=== PATIENT | male | born 1975 | race Caucasian/White ===

== ENCOUNTER 2019-01-11 05:32 | Day surgery (SDC) | payer BC ==
--- NOTE | 2018-12-29 13:06 | HP ---
HISTORY AND PHYSICAL: DATE OF ADMISSION/SURGERY: 01/11/19 DATE OF OFFICE VISIT: 12/27/18 SURGEON: Sonja Viramontes MD * (DICTATED BY DEMETRIO ZHAO) PROCEDURE: Left carpal tunnel release. CHIEF COMPLAINT: Left wrist pain. HISTORY OF PRESENT ILLNESS: Mr. Coats is a 43-year-old gentleman with complaints of left wrist pain and numbness and tingling over the medial nerve distribution. He has elected to proceed with the left carpal tunnel release. PAST MEDICAL HISTORY: High cholesterol, history of seizures, depression, and anxiety. PAST SURGICAL HISTORY: None. CURRENT MEDICATIONS: Atorvastatin calcium 40 mg a day. ALLERGIES: No known drug allergies. FAMILY HISTORY: Coronary artery disease, stroke, diabetes, cancer, and epilepsy. SOCIAL HISTORY: He is a 43-year-old, he lives with his girlfriend. He does not smoke or use drugs. Uses occasional alcohol. REVIEW OF SYSTEMS: A complete 14-point review of systems was reviewed with the patient. It was positive for history of seizures. He denies a history of DVT, PE, hepatitis, HIV, or anesthesia problems. PHYSICAL EXAMINATION GENERAL: He is well developed, well nourished, in no acute distress. VITAL SIGNS: He stands 5 feet 6 inches tall, weighs 172 pounds. Blood pressure is 124/68, heart rate is 68. HEENT: Normocephalic, atraumatic. NECK: Supple. No palpable lymph nodes. PULMONARY: The lungs are clear to auscultation bilaterally. CARDIO: Regular rate and rhythm. Strong S1, S2. ABDOMEN: Soft, nontender, nondistended. NEUROLOGICAL: He is alert and oriented x3. MUSCULOSKELETAL: Left upper extremity: The skin is intact. There are no open wounds or abrasions. He has a positive Tinel's at the left wrist. He has diminished sensation over the medial nerve distribution of the left hand. He has a 2+ distal pulse. There is some mild thenar atrophy. ASSESSMENT AND PLAN: Mr. Coats is a 43-year-old gentleman with carpal tunnel syndrome of the left wrist. He has elected to proceed with an open left carpal tunnel release. The surgery is scheduled for 01/11/[address] Viramontes discussed the risks and benefits of the surgery at today's visit and all of his questions were answered. He will follow up with Dr. Viramontes in 7 to 10 days after the surgery. DEMETRIO ZHAO [id number]/[facility] #: [id number] MTDCholo
[~2019-01-11 05:32] MED LIST: Buffered Lidocaine 1% SYRIN* 1 ML/SYRINGE INTRADERM ONE
[2019-01-11] MEDS ORDERED: Famotidine IV* 10 MG/ML 2 ML (20 mg) ONE (05:54)
[2019-01-11] MEDS ORDERED: Buffered Lidocaine 1% SYRIN* 1 ML/SYRINGE INTRADERM ONE (05:54)
[2019-01-11] MEDS ORDERED: ceFAZolin 2 GM in NS PREMIX(*) 2 GM/100 ML BAG IVPB ONE (05:54)
[2019-01-11] MEDS ORDERED: Lactated Ringers 1000 ML Bag* 1,000 ML IV SCH (06:00)
[2019-01-11] MEDS ORDERED: Famotidine IV* 10 MG/ML 2 ML (20 mg) IV ONE (06:00)
[2019-01-11] MEDS ORDERED: Lidocaine 1% INJ* 10 MG/ML 30 ML SDV ONE (06:52)
[2019-01-11] MEDS ORDERED: Bupivacaine 0.5%* 50 ML VIAL ONE (06:52)
[2019-01-11] MEDS ORDERED: Lidocaine 2% PF * 5 ML VIAL ONE (06:56)
[2019-01-11] MEDS ORDERED: Propofol* 10 MG/ML 20 ML BTL ONE (06:56)
[2019-01-11] MEDS ORDERED: Dexamethasone IV* 4 MG/ML 1 ML (4 MG) ONE (06:56)
[2019-01-11] MEDS ORDERED: Ondansetron INJ* 2 MG/ML VIAL ONE (06:56)
[2019-01-11] MEDS ORDERED: fentaNYL* 50 MCG/ML 2 ML VIAL (100 MCG VIAL) ONE (06:57)
[2019-01-11] MEDS ORDERED: Midazolam* 1 MG/ML 5 ML VIAL (5 MG) ONE (06:57)
[2019-01-11] MEDS ORDERED: Ondansetron INJ* 2 MG/ML VIAL IV PRN (07:09)
[2019-01-11] MEDS ORDERED: oxyCODONE/Acetamin 5/325 MG* TAB PO PRN (07:09)
[2019-01-11] MEDS ORDERED: Naloxone* 0.4 MG/ML 1 ML VIAL IV PRN (07:09)
[2019-01-11] MEDS ORDERED: fentaNYL* 50 MCG/ML 2 ML VIAL (100 MCG VIAL) IV PRN (07:09)
[2019-01-11 10:18] VITALS: BP 122/86
--- NOTE | 2019-01-11 23:39 | OP ---
DATE OF OPERATION: 01/11/19 - [facility] DATE OF : 71 ATTENDING SURGEON: Sonja Viramontes MD. BRAZER ELECTRONIC: DEMETRIO Pavon. Mr. Kaur did help throughout the procedure with preparation of the leg wound, retraction, and wound closure. ANESTHESIOLOGIST: Dr. Gibbons. ANESTHESIA: Local MAC with local 0.5% Marcaine. PRE-OP DIAGNOSIS: Left median nerve compression or carpal tunnel syndrome at the wrist. POST-OP DIAGNOSIS: Left median nerve compression or carpal tunnel syndrome at the wrist. OPERATIVE PROCEDURE: Open left carpal tunnel release. TOURNIQUET TIME: 10 minutes. COMPLICATIONS: None. SPECIMENS: None. ESTIMATED BLOOD LOSS: Less than 25 cc. BRIEF HISTORY/INDICATION: Mr. Coats is a 43-year-old gentleman with over 1 year of increasingly severe left wrist pain and numbness. His physical exam showed a picture of advanced carpal tunnel syndrome and this was confirmed on EMG nerve conduction study. The patient failed conservative treatment and elected to undergo open left carpal tunnel release. Informed consent was obtained from the patient. He understood the risk of surgery included but we were not limited to bleeding, infection, damage to nearby structures, continued pain, need for further surgery, stroke, heart attack, blood clot, , and anesthesia complications. He wishes to proceed. INTRAOPERATIVE FINDINGS: Intraoperatively, the patient was noted to have significant thickening of the transverse carpal ligament. There was no visible tumor or ganglion in the carpal tunnel. DESCRIPTION OF PROCEDURE: Mr. Coats was identified in the preanesthesia unit. His left upper extremity identified as correct operative side. Informed consent was signed and placed in the chart. The patient was taken to the operative room and placed under anesthesia without difficulty. Tourniquet was placed on the left arm. Left upper extremity was prepped and draped in the usual sterile fashion. Preop timeout was made to correctly identify the patient side and site. Appropriate perioperative antibiotic given within one hour of incision. A 10 cc of 0.5% Marcaine were used for local anesthesia. Tourniquet was inflated. A 2.5 cm incision was made longitudinally over the thenar crease just over the carpal tunnel. Tenotomies were used to dissect down through the subcutaneous fat and appropriate retractors were placed. The palmar fascia was visualized. A 15-blade was used to incise the palmar fascia in line with the skin incision. Further retraction clearly showed the transverse carpal ligament. This was also incised meticulously in a longitudinal fashion in line with the skin incision using a 15-blade and tenotomies. The median nerve was well visualized. There was some slight inflammation, but no obvious ganglion or other masses. The transverse carpal ligament was released distally into the palmar fat and proximally in adequate amounts. The wound was copiously irrigated with sterile saline. Tourniquet was turned down at 10 minutes. Electrocautery was used to obtain meticulous hemostasis. The incision was closed using interrupted vertical mattress sutures. 3-0 nylon was used. Sterile Xeroform, 4x4s, and Webril were placed over the incision. A volar plaster splint was placed for temporary and short-term immobilization. The patient's anesthesia was reversed without difficulty. He was taken to the PACU in stable condition. Intended weight-bearing will be nonweightbearing left upper extremity with no heavy lifting. He will followup in 5 days for split removal and a new dressing. [id number]/[facility] #: [id number] [facility] CENTER[facility]olo
== END 2019-01-11 10:21 | disposition home or self-care (01) ==
LOC: OR 05:32
PROVIDERS: ATTEND Orthopaedic Surgery Adult Reconstructive Orthopaedic Surgery
DX: G56.02 Carpal tunnel syndrome, left upper limb (principal); E78.00 Pure hypercholesterolemia, unspecified; F41.8 Other specified anxiety disorders; E78.5 Hyperlipidemia, unspecified; G40.89 Other seizures
CPT/HCPCS: J0690; J1100; J2250; J2405; J2704; J3010; J3490

== ENCOUNTER 2019-02-11 17:07 | Emergency (ER) | payer BC ==
[2019-02-11 17:42] VITALS: BP 156/96
--- NOTE | 2019-02-11 17:46 | UC ---
Lower Extremity/Ankle HPI - HPI Summary HPI Summary: 43 year old male presents with progressive left leg and calf swelling and pain over the past week. Swelling startes at his left upper leg and extends down to his foot. He states he receives steroid injections in his left knee q 3-4 mos, last injection was 2 weeks ago. He denies associated chest pains, shortness of breath pleuritic pain nor hemoptysis. - History of Current Complaint Chief Complaint: UCLowerExtremity Stated Complaint: SWOLLEN LEFT LEG Time Seen by Provider: 02/11/19 17:43 Hx Obtained From: Patient Onset/Duration: Gradual Onset, Lasting Days - over the past week, Worse Since - the past 5 days Pain Intensity: 6 Able to Bear Weight: Yes - Risk Factors Gout Risk Factors: Age Over 40, Male DVT Risk Factors: Other: - recent left knee injection - Allergies/Home Medications Allergies/Adverse Reactions: Allergies Allergy/AdvReac Type Severity Reaction Status Date / Time No Known Allergies Allergy Verified 02/11/19 17:33 PMH/Surg Hx/FS Hx/Imm Hx Cardiovascular History: Other - HLD - Surgical History Surgical History: Yes Surgery Procedure, Year, and Place: [address] [facility]. LEFT CARPAL TUNNEL - Family History Known Family History: Positive: Cardiac Disease, Hypertension Family History: Denies family history of blood clots/hypercoagulability. - Social History Alcohol Use: Occasionally Alcohol Amount: 1-2 BEERS/WEEK Substance Use Type: None Smoking Status (MU): Former Smoker Type: Cigarettes Amount Used/How Often: 5-6 CIGS. PER DAY 20 YRS Have You Smoked in the Last Year: No When Did the Patient Quit Smoking/Using Tobacco: 2011 Review of Systems All Other Systems Reviewed And Are Negative: Yes Constitutional: Negative: Fever, Chills, Fatigue Skin: Negative: Rash, Bruising Eyes: Negative: Blurred Vision ENT: Negative: Sore Throat Respiratory: Negative: Shortness Of Breath, Cough Cardiovascular: Negative: Palpitations, Chest Pain Gastrointestinal: Negative: Abdominal Pain, Vomiting, Diarrhea, Nausea Genitourinary: Negative: Dysuria Motor: Positive: Other - pain, especially left posterior calf. Neurovascular: Negative: Decreased Sensation, Decreased Pulses Musculoskeletal: Positive: Arthralgia - left knee, Calf Tenderness, Edema - left lower leg. Neurological: Negative: Headache, Weakness, Paresthesia, Numbness Is Patient Immunocompromised?: No Physical Exam Triage Information Reviewed: Yes Appearance: Well-Appearing, No Pain Distress, Well-Nourished Vital Signs: Initial Vital Signs Temp 97.3 F 02/11/19 17:33 Pulse 78 02/11/19 17:33 Resp 16 02/11/19 17:33 BP 156/96 02/11/19 17:33 Pulse Ox 97 02/11/19 17:33 Vital Signs Reviewed: Yes Eye Exam: Normal ENT Exam: Normal Neck: Positive: Supple, Nontender Respiratory: Positive: Chest non-tender, Lungs clear, Normal breath sounds, No respiratory distress Cardiovascular: Positive: RRR, No Murmur, Brisk Capillary Refill Abdomen Description: Positive: Nontender, No Organomegaly, Soft Musculoskeletal: Positive: Strength Intact, Edema @ - at foot and ankle., Other : - Left calf 36cm, right calf 35.5cm Left calf tenderness to palpation. Neurological: Positive: Alert Psychological Exam: Normal Skin: Negative: Rashes, Significant Lesion(s) Lower Extremity Course/Dx - Differential Dx/Diagnosis Differential Diagnosis/HQI/PQRI: DVT Provider Diagnosis: Left leg swelling Discharge - Sign-Out/Discharge Documenting (check all that apply): Patient Departure All imaging exams completed and their final reports reviewed: No Studies - Discharge Plan Condition: Stable Disposition: HOME-RECOMMEND TO ED Referrals: Luanne Polk MD [Primary Care Provider] - Additional Instructions: Proceed directly to the Emergency Department for further evaluation of your left leg swelling. As we discussed, concern is to rule out a deep vein thrombosis (blood clot) of your left leg. - Billing Disposition and Condition Condition: STABLE Disposition: Home-Recommend to ED
--- OUTSIDE RECORDS SUMMARY | 2019-02-11 19:03 | XMS REPORT | Continuity of Care Document ---
:1975 External Reference #:[id number] Author Name Jovanna Johnson Care Team Providers Name Role Phone Luanne Polk M.D. Primary Care Physician Unavailable Payers Date Identification Numbers Payment Provider Subscriber Policy Number: [id number] [facility] Andrew Coats PayID: [id number] [address] [address] [place] [address] Problems Active Problems Provider Date Localized, primary osteoarthritis Sonja Viramontes M.D. Onset: 10/29/2018 Carpal tunnel syndrome of left wrist Sonja Viramontes M.D. 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 01/11/2019 50mg Tablets mouth every eight hours as needed for pain Atorvastatin Calcium 1 by mouth every Unknown 40mg day Tablets Medications Administered in Office Medication SIG Qnty Indications Ordering Provider Date Depomedrol 40MG Sonja Viramontes M.D. 10/29/2018 Injection Vital Signs Date Vital Result Comment 01/17/2019 1:05pm Height 66 inches 5'6" Weight 168.00 lb Heart Rate 101 /min BP Systolic Sitting 122 mmHg BP Diastolic Sitting 84 mmHg Respiratory Rate 16 /min Body Temperature 98.9 F Pain Level 2 O2 % BldC Oximetry 97 % BMI (Body Mass Index) 27.1 kg/m2 12/27/2018 7:53am Height 66 inches 5'6" Weight 172.00 lb Heart Rate 68 /min BP Systolic 124 mmHg BP Diastolic 68 mmHg BMI (Body Mass Index) 27.8 kg/m2 12/10/2018 8:03am Height 66 inches 5'6" Weight 176.00 lb Heart Rate 76 /min BP Systolic 120 mmHg BP Diastolic 84 mmHg BMI (Body Mass Index) 28.4 kg/m2 11/12/2018 8:51am Height 68 inches 5'8" Heart Rate 72 /min BP Systolic 122 mmHg BP Diastolic 84 mmHg Respiratory Rate 16 /min Body Temperature 97.8 F Pain Level 2 10/29/2018 10:37am Height 68 inches 5'8" Weight 177.00 lb Heart Rate 84 /min BP Systolic 122 mmHg BP Diastolic 80 mmHg Pain Level 8 BMI (Body Mass Index) 26.9 kg/m2 Procedures Date Code Description Status 01/11/2019 27774 Carpal Tunnel Release Completed 01/11/2019 02926 Carpal Tunnel Release Completed 10/29/2018 69273 Inject/Drain Joint/Bursa Major W/O US Completed Encounters Type Date Location Provider Dx Diagnosis Office Visit 12/10/2018 [facility] Viramontes G56.02 Carpal tunnel 8:00a [facility] syndrome, left upper limb R20.0 Anesthesia of skin M25.532 Pain in left wrist Office Visit 11/12/2018 8:45a [facility] Sonja Viramontes G56.02 Carpal tunnel Services [facility] syndrome, left upper limb M25.562 Pain in left knee M25.462 Effusion, left knee M17.0 Bilateral primary osteoarthritis of knee R20.0 Anesthesia of skin M25.532 Pain in left wrist Office Visit 10/29/2018 10:00a [facility] Sonja Viramontes M25.562 Pain in left [facility] knee M25.462 Effusion, left knee M23.8x2 Other internal derangements of left knee G56.02 Carpal tunnel syndrome, left upper limb M17.0 Bilateral primary osteoarthritis of knee M25.532 Pain in left wrist Plan of Treatment Future Appointment(s):01/24/2019 8:00 am - [facility] - Sonja Viramontes M.D.G56.02 Carpal tunnel syndrome, left upper limbFollow up:Follow up: As [id number] Encounter for surgical aftercare following surgery on the sk
--- OUTSIDE RECORDS SUMMARY | 2019-02-11 19:03 | XMS REPORT | Continuity of Care Document ---
:1975 External Reference #:[id number] Author Name Jovanna Johnson Care Team Providers Name Role Phone Luanne Polk M.D. Primary Care Physician Unavailable Payers Date Identification Numbers Payment Provider Subscriber Policy Number: [id number] [facility] Andrew Coats PayID: [id number] [address] [address] [place] [address] Problems Active Problems Provider Date Localized, primary osteoarthritis Sonja Viramontes M.D. Onset: 10/29/2018 Carpal tunnel syndrome of left wrist Sonja Viramontes M.D. Onset: 10/29/2018 Family History Date Family Member(s) Observation Comments General Heart Disease General Stroke General Diabetes Social History Type Date Description Comments Sex Unknown Lives With Spouse Occupation [employer] ETOH Use Occasionally consumes alcohol Tobacco Use Start: Unknown Patient has never smoked Smoking Status Reviewed: 01/24/19 Patient has never smoked Exercise Type/Frequency Exercises [...] Injection Vital Signs Date Vital Result Comment 01/24/2019 8:07am Height 66 inches 5'6" Weight 168.00 lb BP Systolic 124 mmHg BP Diastolic 79 mmHg Respiratory Rate 16 /min Body Temperature 96.1 F Pain Level 0 BMI (Body Mass Index) 27.1 kg/m2 01/17/2019 1:05pm Height 66 inches 5'6" Weight [...] 26.9 kg/m2 Procedures Date Code Description Status 01/24/2019 04730 Inject/Drain Joint/Bursa Major W/O US Completed 01/11/2019 49555 Carpal Tunnel Release Completed 01/11/2019 60844 Carpal Tunnel Release Completed 10/29/2018 74543 Inject/Drain Joint/Bursa Major W/O US Completed Encounters Type Date Location Provider Dx Diagnosis Office Visit 12/10/2018 [facility] Sonja Viramontes G56.02 Carpal tunnel 8:00a [facility] M[facility]icaD. syndrome, left upper limb R20.0 Anesthesia of skin M25.532 Pain in left wrist Office Visit 11/12/2018 8:45a [facility] Sonja Viramontes G56.02 Carpal tunnel [facility] MJessicaD. syndrome, left upper limb M25.562 Pain in [...] in left wrist Plan of Treatment Future Appointment(s):02/21/2019 8:45 am - Sonja Viramontes [facility]01/24/2019 - Sonja Viramontes M.D.G56.02 Carpal tunnel syndrome, left upper limbM25.532 Pain in left dryrlE79.0 Bilateral primary osteoarthritis of kneeFollow up:Follow up: 4 yjkhmJ89.462 Effusion, left kneeM25.562 Pain in left knee
== END 2019-02-11 18:00 | disposition home health service (06) ==
LOC: UCCORT 17:07
DX: M79.89 Other specified soft tissue disorders (principal); Z79.52 Long term (current) use of systemic steroids; Z87.891 Personal history of nicotine dependence
CPT/HCPCS: 99212; G0463